=== PATIENT | male | born 1970 | race African-American/Black ===

== ENCOUNTER 2020-09-15 04:56 | Emergency (ER) | payer SELFPAY ==
--- NOTE | ~2020-09-15 | US_ITS ---
EXAMINATION: US scrotum doppler DATE: 09/15/2020 06:03 INDICATION: Right testicular pain. TECHNIQUE: Grayscale and Doppler ultrasound images of the testes were obtained. COMPARISON: None. FINDINGS: The right testis measures 4.7 x 3.3 x 3.3 cm. The left testis measures 3.9 x 2.5 x 2.4 cm. There is increased vascular flow to right testis. There is normal vascular flow in left testis. The r ight epididymis is enlarged and hypoechoic with increased vascularity. There are cysts in the epididy mides measuring up to 8 mm on the right. There is a large right-sided hydrocele. IMPRESSION: 1. Right-sided epididymoorchitis. 2. Large right-sided hydrocele. Reviewed, dictated and finalized at location A.
[2020-09-15 04:59] VITALS: BP 141/100; PULSE 104; RESP 16; TEMP 36.6; O2SAT 95
[2020-09-15] MEDS: MORPHINE SULFATE (*CRX) 4 MG/ML INJ IV PUSH (05:18)
[2020-09-15] MEDS: ONDANSETRON INJ 4 MG/2 ML VIAL IV PUSH (05:19)
[2020-09-15 05:21] LABS: Basophils Absolute Auto 0.1 K/mm3 (0.0-0.1); Basophils Percent Auto 0.2 % (0.2-1.2); Eosinophils Percent Auto 0.1 % (0-4.4); Hematocrit 38.5 % (42.0-52.0); Hemoglobin 12.6 g/dL (14.0-18.0); Immature Granulocyte Absolute 0.12 K/mm3 (0.00-0.031); Immature Granulocyte Percent A 0.5 % (0-0.5); Lymphocytes Absolute Auto 1.24 K/mm3 (0.9-3.2); Lymphocytes Percent Auto 5.1 % (18.3-44.2); Mean Corpuscular HGB Conc 32.7 g/dl (32-36); Mean Corpuscular Hemoglobin 31.7 pg (26-34); Mean Corpuscular Volume 96.7 fl (80-100); Mean Platelet Volume 8.8 fl (7.4-10.4); Monocytes Absolute Auto 1.6 K/mm3 (0.1-0.6); Monocytes Percent Auto 6.5 % (2.6-8.5); Neutrophils Absolute Auto 21.1 K/mm3 (1.3-6.7); Neutrophils Percent Auto 87.6 % (45.5-73.1); Platelet Count Result 481 k/mm3 (150-375); Red Blood Count 3.98 M/mm3 (4.6-6.20); Red Cell Distribution Width 11.9 % (11.5-14.5); White Blood Count 24.1 K/mm3 (4.5-10.0)
[2020-09-15 05:35] LABS: Alanine Aminotransferase 19 U/L (4-50); Albumin Level 4.2 g/dL (3.5-5.1); Alkaline Phosphatase 75 U/L (38-126); Anion Gap 6 mmol/L (8-16); Aspartate Amino Transferase 25 U/L (17-59); Bilirubin,Total 0.8 mg/dL (0.2-1.3); Blood Urea Nitrogen 9 mg/dL (9-20); Calcium 9.1 mg/dL (8.4-10.2); Carbon Dioxide 29 mmol/L (22-30); Chloride 100 mmol/L (98-107); Estimated CRCL calculation 115 ml/min; Estimated Glomerular Filt Rate > 60; Glucose 121 mg/dL (75-110); Potassium 4.2 mmol/L (3.4-5.0); Sodium 135 mmol/L (137-145)
--- NOTE | 2020-09-15 05:44 | ED.GENADULT ---
HPI - General Adult General Chief complaint: Urogenital-Male Stated complaint: Right sided testicle pain Time Seen by Provider: 09/15/20 05:04 History of Present Illness HPI narrative: Patient is a 50-year-old gentleman who presents the emergency department with chief complaint of right testicle pain. The patient reports he was seen by urology and had a outpatient ultrasound. The patient's been taking naproxen but without relief of the pain. Patient reports that he has swelling and tenderness of his right testicle. Patient denies fever denies dysuria. Related Data Allergies Allergy/AdvReac Type Severity Reaction Status Date / Time No Known Allergies Allergy Verified 09/15/20 05:02 Review of Systems Review of Systems: Narrative: A 10 system review of systems was completed on the patient and is negative except for what is stated in the HPI. Nursing and ancillary documentation was reviewed. PMFSH Comments Patient denies past medical history Social history the patient denies illicit drug use Exam Narrative: Exam Narrative: GENERAL: Well-appearing, well-nourished, and in moderate pain distress . HEAD: Normocephalic, atraumatic. EYES: PERRLA and EOMI. ENT: Nares clear, no rhinorrhea or epistaxis. Mucous membranes moist. NECK: Supple. CHEST: Clear to auscultation. No respiratory distress. HEART: Regular rate and rhythm. No murmur heard. Normal peripheral pulses. ABDOMEN: Soft, nontender, nondistended, normal active bowel sounds. EXTREMITIES: Normal range of motion. No edema. : There is significant swelling and tenderness of the right testicle SKIN: Warm, dry, no rash. NEURO: No focal deficits. Alert and oriented x3. PSYCH: Normal mood and affect. Course Vital Signs Vital signs: Vital Signs Temperature 36.6 C 09/15/20 04:59 Pulse Rate 104 H 09/15/20 04:59 Respiratory Rate 16 09/15/20 04:59 Blood Pressure 141/100 H 09/15/20 04:59 Pulse Oximetry 95 09/15/20 04:59 Temperature 36.6 C 09/15/20 04:59 Pulse Rate 102 H 09/15/20 06:32 Respiratory Rate 20 09/15/20 06:32 Blood Pressure 153/102 H 09/15/20 06:32 Pulse Oximetry 100 09/15/20 06:32 Medical Decision Making Vital Signs Vital Signs: Vital Signs Temperature 36.6 C 09/15/20 04:59 Pulse Rate 104 H 09/15/20 04:59 Respiratory Rate 16 09/15/20 04:59 Blood Pressure 141/100 H 09/15/20 04:59 Pulse Oximetry 95 09/15/20 04:59 Temperature 36.6 C 09/15/20 04:59 Pulse Rate 102 H 09/15/20 06:32 Respiratory Rate 20 09/15/20 06:32 Blood Pressure 153/102 H 09/15/20 06:32 Pulse Oximetry 100 09/15/20 06:32 Lab Data Result diagrams: 09/15/20 05:15 09/15/20 05:15 Labs: Lab Results 09/15/20 09/15/20 Range/Units 05:15 05:15 WBC 24.1 H (4.5-10.0) K/mm3 RBC 3.98 L (4.6-6.20) M/mm3 Hgb 12.6 L (14.0-18.0) g/dL Hct 38.5 L (42.0-52.0) % MCV 96.7 (80-100) fl MCH 31.7 (26-34) pg MCHC 32.7 (32-36) g/dl RDW 11.9 (11.5-14.5) % Plt Count 481 H (150-375) k/mm3 MPV 8.8 (7.4-10.4) fl Immature Gran % (Auto) 0.5 (0-0.5) % Neut % (Auto) 87.6 H (45.5-73.1) % Lymph % (Auto) 5.1 L (18.3-44.2) % [place] % (Auto) 6.5 (2.6-8.5) % Eos % (Auto) 0.1 (0-4.4) % Baso % (Auto) 0.2 (0.2-1.2) % Lymph # (Auto) 1.24 (0.9-3.2) K/mm3 [place] # (Auto) 1.6 H (0.1-0.6) K/mm3 Eos # (Auto) 0.0 (0-0.3) K/mm3 Baso # (Auto) 0.1 (0.0-0.1) K/mm3 Abs Immat Gran (auto) 0.12 H (0.00-0.031) K/mm3 Absolute Neuts (auto) 21.1 H (1.3-6.7) K/mm3 Absolute Nucleated RBC 0.0 (0.0-0.012) K/mm3 Nucleated RBC % 0.0 (0.0-0.2) % Sodium 135 L (137-145) mmol/L Potassium 4.2 (3.4-5.0) mmol/L Chloride 100 (98-107) mmol/L Carbon Dioxide 29 (22-30) mmol/L Anion Gap 6 L (8-16) mmol/L BUN 9 (9-20) mg/dL Creatinine 0.70 (0.7-1.3) mg/dL Estim Creat Clear Calc 115 ml/min Estimated GFR > 60 (59 - ) Glucose 121
[2020-09-15] MEDS: HYDROmorphone HCL INJ (*CRX) 1 MG/ML SYR IV PUSH (06:21)
[2020-09-15 06:32] VITALS: BP 153/102; PULSE 102; RESP 20; O2SAT 100
[2020-09-15] MEDS: DOXYCYCLINE HYCLATE 100 MG TABLET PO (06:56)
--- NOTE | 2020-09-15 07:03 | WPDURCON ---
Assessment and Plan Assessment and plan (1) Acute epididymo-orchitis: Code(s): N45.3 - Epididymo-orchitis Status: Acute Assessment and Plan: This is a 42-year-old gentleman with right epididymorchitis with associated hydrocele. -the patient will be given empiric antibiotics in the emergency department and discharged home with doxycycline. -a urine culture was ordered -encouraged scrotal elevation, ice and nonsteroidal anti-inflammatories. -the patient should follow-up in the office in 2 weeks if he has persistent symptoms. Urology Consult Note HPI Date Seen: 09/15/20 Primary Care Provider: APPLIANCE TECHNICIAN PHYSICIAN Consult Narrative Narrative: Monica Gonzalez is a 50 year old male who presented to the emergency department with right scrotal pain. The patient with enlarging right hemiscrotum. The patient has used a heating back without deviation of his pain. The patient did take naproxen without improvement. He denies fevers or chills nausea vomiting chest pain shortness of breath. Review of Systems Review of Systems: All systems reviewed & are unremarkable except as noted in HPI and below Meds Home Medications and Allergies Home Medications Medication Instructions Recorded Confirmed Type doxycycline hyclate 100 mg PO Q12H 10 Days #20 cap 09/15/20 Rx oxycodone-acetaminophen [Percocet] 1 tablet PO Q6H PRN 3 Days #12 09/15/20 Rx tablet Allergies Allergy/AdvReac Type Severity Reaction Status Date / Time No Known Allergies Allergy Verified 09/15/20 05:02 Vital Signs Vital Signs - 24 hr 09/15/20 04:59 09/15/20 06:32 Temperature 36.6 C Pulse Rate 104 H 102 H Respiratory Rate 16 20 Blood Pressure 141/100 H 153/102 H Pulse Oximetry 95 100 Exam Narrative: Exam Narrative: The patient is awake alert and oriented. Abdomen soft nontender nondistended. Respiratory is nonlabored. There is a firm right hydrocele. Left testicle is normal. Normal phallus and urethral meatus. Results Labs CBC & Chem 7: 09/15/20 05:15 09/15/20 05:15 Labs: Short CBC 09/15/20 Range/Units 05:15 WBC 24.1 H (4.5-10.0) K/mm3 Hgb 12.6 L (14.0-18.0) g/dL Hct 38.5 L (42.0-52.0) % Plt Count 481 H (150-375) k/mm3 BMP 09/15/20 05:15 Sodium 135 L Potassium 4.2 Chloride 100 Carbon Dioxide 29 BUN 9 Creatinine 0.70 Glucose 121 H Calcium 9.1 Liver Function 09/15/20 Range/Units 05:15 Total Bilirubin 0.8 (0.2-1.3) mg/dL AST 25 (17-59) U/L ALT 19 (4-50) U/L Alkaline Phosphatase 75 (38-126) U/L Albumin 4.2 (3.5-5.1) g/dL A scrotal ultrasound was performed. I reviewed the images. The patient has right epididymal orchitis with associated right hydrocele.
[2020-09-15 07:08] VITALS: BP 134/96; PULSE 91; RESP 20; TEMP 36.8; O2SAT 98
== END 2020-09-15 07:10 | disposition home or self-care (01) ==
PROVIDERS: Emergency Provider Emergency Medicine
DX: N45.3 Epididymo-orchitis (principal)
CPT/HCPCS: 36415; 76870; 80053; 85025; 93976; 96374; 96375; 99284; A9270; J0696; J1170; J2270; J2405

== ENCOUNTER 2022-05-16 10:47 | Emergency (ER) | payer SELFPAY ==
[2022-05-16 11:36] VITALS: BP 174/124; PULSE 78; RESP 16; TEMP 36.8; O2SAT 100
--- NOTE | 2022-05-16 11:44 | ED.GENADULT ---
HPI - General Adult General Chief complaint: Skin/Abscess/Foreign Body Stated complaint: lump front of head Time Seen by Provider: 05/16/22 11:44 Source: patient, RN notes reviewed and old records reviewed Mode of arrival: ambulatory Limitations: no limitations History of Present Illness HPI narrative: 51-year-old male presents to the [facility] with a lump on his head for approximately 1 year. Has not been seen for the lump. Also reports that the lower eyelid right eye was swollen this morning. Patient would also like his blood pressure checked. Does not have a primary care provider Related Data Allergies Allergy/AdvReac Type Severity Reaction Status Date / Time No Known Allergies Allergy Verified 09/15/20 05:02 Review of Systems Review of Systems: All systems reviewed & are unremarkable except as noted in HPI and below Constitutional: Constitutional: Reports no additional constitutional complaints, Denies chills and Denies fever(s) Eyes: Eyes: Reports as per HPI (Swelling right lower lid), Reports no additional eye complaints and Denies change in vision ENT: Reports system reviewed and no additional complaints, except as documented Cardiovascular: Cardiovascular: Reports no additional cardiovascular complaints Respiratory: Respiratory: Reports no additional respiratory complaints Gastrointestinal: Gastrointestinal: Reports no additional gastrointestinal complaints Musculoskeletal: Musculoskeletal: Reports no additional musculoskeletal complaints Integumentary/Breasts: Skin/Breast: Reports as per HPI, Denies erythema and Denies rash Neurologic: Reports system reviewed and no additional complaints, except as documented Psychiatric: Psychiatric: Reports no additional psychiatric complaints Allergic/Immunologic: Allergic/Immunologic: Reports no additional allergic/immunologic complaints PMFSH Social History Social History (Updated 05/16/22 @ 19:22 by Xena Baker APRN) Gender identity (if verbalized by the patient): Male Comments At the time of my signature, I reviewed and agree with the nursing past medical, surgical, social, and family history. There is no relevant family history pertinent to the patient complaint. Exam Const: General: healthy appearing, comfortable, no acute distress, well developed, alert and well nourished Nutritional Appearance: well nourished Orientation/consciousness: patient oriented x3 Limitations: no limitations HENMT: Head: normal to inspection Ears: external ears normal, TM's normal bilaterally and EAC's normal Face/Nose/Sinus: Normal external nose present and Normal nares present Face and sinus: normal facial exam Mouth: Yes Normal oral and palatal mucosa present, Yes lip normal and Yes moist mucous membranes Throat: posterior oropharynx normal Eyes: General: appearance normal, both eyes and all related structures Conjunctivae: conjunctival abnormality right (Stye noted in her right lower lid with minor swelling) Pupils: Equal, round and reactive pupils present Neck: Neck: normal visual inspection, full ROM, no lymphadenopathy and no meningeal signs Chest: Chest palpation & inspection: normal inspection of the chest Resp: Effort & Inspection: normal respiratory effort and no use of accessory muscles Auscultation: clear to auscultation bilaterally, no crackles, no rales, no rhonchi and no wheezes Cardio: Rate: regular rate Rhythm: regular rhythm Back/Spine/Pelvis: Cervical Spine: cervical ROM normal and No Cervical spine tenderness Thoracic/Lumbar Spine: thoracic and lumbar spine normal to inspection and thoraco-lumbar ROM normal Skin: General skin exam: normal color Rashes: no rashes Wounds: no wounds Other: Skin colored cystic structure, 1-1/2 cm in diameter without increased redness, bruising. Firm. No fluctuance Neuro: General: patient oriented x3, moves all extremities, no meningeal signs and no focal motor deficits Cranial nerves: Yes Equal, round and
== END 2022-05-16 12:03 | disposition home or self-care (01) ==
PROVIDERS: Emergency Provider Nurse Practitioner
DX: H00.012 Hordeolum externum right lower eyelid (principal); H02.822 Cysts of right lower eyelid
CPT/HCPCS: 99213; G0463